=== PATIENT | male | born 1970 | race Caucasian/White ===

== ENCOUNTER → 2023-05-05 08:02 | Outpatient (CLI) | payer OTHER, SELFPAY ==
--- NOTE | 2023-05-05 | DI.US.S_ITS ---
PROCEDURE: US RENAL COMPLETE INDICATIONS: LEFT URETERAL CALCULUS TECHNIQUE: Real-time scanning was performed of the kidneys and bladder, with image documentation. COMPARISON: None. FINDINGS: Kidneys: Kidneys are normal in size. Right kidney measures 12.4 cm long; left kidney measures 10.7 cm long. Right renal cortical thickness is 1.8 cm; left renal cortical thickness is 1.5 cm. Renal cortical echotexture is normal. No hydronephrosis or nephrolithiasis. No suspicious solid mass lesions. There is a 7 mm left renal cyst noted. Bladder: Pre-void bladder volume is 117.6 mL. Post-void residual is 2.4 mL. Pre-void images demonstrate no intraluminal masses or stones. On pre-void images, bilateral ureteral jets are noted with color Doppler interrogation. (Of note, ureteral jets may not be detectable in up to 25% of cases due to insufficient differences in specific gravity between ureteral and bladder urine). Miscellaneous: No free pelvic fluid. IMPRESSION: No hydronephrosis or nephrolithiasis. No significant postvoid residual. Dictated by: Savita Cruz M.D. on 05/05/2023 at 11:55 Approved by: Savita Cruz M.D. on 05/05/2023 at 11:56
== END ==
PROVIDERS: Referring Provider Urology; Visit Provider Urology
DX: N20.1 Calculus of ureter (principal)
CPT/HCPCS: 76770